=== PATIENT | female | born 2000 | race Two or more races ===

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

== ENCOUNTER 2021-03-21 08:00 | Outpatient (CLI) | payer OTHER, MEDICAID ==
[2021-03-21 12:10] LABS: BASOPHILS # (AUTO) 0.1 10^3/uL (0.0-0.1); BASOPHILS % (AUTO) 0.8 %; EOSINOPHILS # (AUTO) 0.3 10^3/uL (0.0-0.7); EOSINOPHILS % (AUTO) 3.1 %; HCT - HEMATOCRIT 46.9 % (37.0-47.0); HGB - HEMOGLOBIN 15.5 g/dL (12.0-16.0); LYMPHOCYTES # (AUTO) 3.8 10^3/uL (1.5-3.5); LYMPHOCYTES % (AUTO) 40.6 %; MEAN CORPUSCULAR HEMOGLOBIN 31.1 pg (27.0-31.0); MEAN CORPUSCULAR VOLUME 94.2 fL (81.0-99.0); MEAN PLATELET VOLUME 10.6 fL (7.9-10.8); MONOCYTES # (AUTO) 0.7 10^3/uL (0.0-1.0); MONOCYTES % (AUTO) 7.6 %; NEUTROPHILS # (AUTO) 4.4 10^3/uL (1.5-6.6); NEUTROPHILS % (AUTO) 47.6 %; PLT - PLATELET COUNT 390 10^3/uL (130-450); RED BLOOD COUNT 4.98 10^6/uL (4.20-5.40); RED CELL DISTRIBUTION WIDTH 11.9 % (12.0-15.0); WHITE BLOOD COUNT 9.3 x10^3/uL (4.8-10.8)
[2021-03-21 12:19] LABS: ESTIMATED AVERAGE GLUCOSE 154 mg/dL (70-100)
[2021-03-21 12:27] LABS: ALBUMIN 4.4 g/dL (3.2-5.5); ALBUMIN/GLOBULIN RATIO 1.5 (1.0-2.2); ALKALINE PHOSPHATASE 81 IU/L (42-121); ALT ALANINE AMINOTRANSFERASE 19 IU/L (10-60); AST ASPARTATE AMINOTRANSFERASE 13 IU/L (10-42); BILIRUBIN,TOTAL 0.6 mg/dL (0.2-1.0); BUN - BLOOD UREA NITROGEN 5 mg/dL (6-20); CALCIUM 9.5 mg/dL (8.5-10.3); CARBON DIOXIDE - CO2 26 mmol/L (21-32); CHLORIDE 105 mmol/L (101-111); CHOL/HDL RATIO 5.1 (<4.4); CHOLESTEROL 164 mg/dL; CREATININE 0.6 mg/dL (0.4-1.0); GFR - MDRD 129 (>89); GLUCOSE 99 mg/dL (70-100); HDL CHOLESTEROL 32 mg/dL; LDL CHOLESTEROL,CALCULATED 100 mg/dL; LDL/HDL RATIO 3.1 (<4.4); POTASSIUM 4.1 mmol/L (3.5-5.0); SODIUM 140 mmol/L (135-145); THYROID STIMULATING HORMONE 2.78 uIU/mL (0.34-5.60); TOTAL PROTEIN 7.4 g/dL (6.7-8.2); TRIGLYCERIDES 159 mg/dL; VLDL CHOLESTEROL 32 mg/dL
== END 2021-03-21 23:59 | disposition home or self-care (01) ==
LOC: LAB.WCP 08:00
PROVIDERS: ATTEND Physician Assistant Medical
DX: Z00.00 Encounter for general adult medical examination without abnormal findings (principal); R73.03 Prediabetes; E03.9 Hypothyroidism, unspecified
CPT/HCPCS: 36415; 80053; 80061; 83036; 83721; 84443; 85025

== ENCOUNTER 2021-09-12 08:00 | Outpatient (CLI) | payer OTHER, MEDICAID ==
[2021-09-12 18:56] LABS: BUN - BLOOD UREA NITROGEN 8 mg/dL (6-20); CALCIUM 9.3 mg/dL (8.5-10.3); CARBON DIOXIDE - CO2 25 mmol/L (21-32); CHLORIDE 104 mmol/L (101-111); CHOL/HDL RATIO 4.6 (<4.4); CHOLESTEROL 143 mg/dL; CREATININE 0.7 mg/dL (0.4-1.0); GFR - MDRD 107 (>89); GLUCOSE 138 mg/dL (70-100); HDL CHOLESTEROL 31 mg/dL; LDL CHOLESTEROL,CALCULATED 94 mg/dL; POTASSIUM 3.9 mmol/L (3.5-5.0); SODIUM 139 mmol/L (135-145); TRIGLYCERIDES 92 mg/dL; VLDL CHOLESTEROL 18 mg/dL
[2021-09-12 20:31] LABS: ESTIMATED AVERAGE GLUCOSE 146 mg/dL (70-100); HEMOGLOBIN A1c% 6.7 % (4.27-6.07)
== END 2021-09-12 23:59 | disposition home or self-care (01) ==
LOC: LAB.WCP 08:00
PROVIDERS: ATTEND Physician Assistant Medical
DX: E11.9 Type 2 diabetes mellitus without complications (principal)
CPT/HCPCS: 36415; 80048; 80061; 82043; 82570; 83036; 83721

== ENCOUNTER 2021-09-17 08:00 | Outpatient (CLI) | payer OTHER, MEDICAID ==
[2021-09-18 18:46] LABS: CREATININE,URINE 220.9 mg/dL; MICROALBUM/CREATININE RATIO,UR 20.4 ug/mg (<30.0); MICROALBUMIN,URINE 4.5 mg/dL (0-300.0)
== END 2021-09-17 23:59 | disposition home or self-care (01) ==
LOC: LAB.WCP 08:00
PROVIDERS: ATTEND Physician Assistant Medical
DX: E11.9 Type 2 diabetes mellitus without complications (principal)
CPT/HCPCS: 82043; 82570

== ENCOUNTER 2021-11-07 08:00 | Outpatient (CLI) | payer OTHER, MEDICAID | END 2021-11-07 23:59 | disposition home or self-care (01) | LOC: LAB.N 08:00 | PROVIDERS: ATTEND Family Medicine | DX: R53.81 Other malaise (principal); R53.83 Other fatigue; Z20.822 Contact with and (suspected) exposure to COVID-19 ==

== ENCOUNTER 2022-01-10 08:05 | Outpatient (CLI) | payer OTHER, MEDICAID ==
[2022-01-10 12:34] LABS: ESTIMATED AVERAGE GLUCOSE 148 mg/dL (70-100); HEMOGLOBIN A1c% 6.8 % (4.27-6.07)
[2022-01-10 12:38] LABS: ALBUMIN 4.5 g/dL (3.2-5.5); ALBUMIN/GLOBULIN RATIO 1.5 (1.0-2.2); ALKALINE PHOSPHATASE 91 IU/L (42-121); ALT ALANINE AMINOTRANSFERASE 20 IU/L (10-60); AST ASPARTATE AMINOTRANSFERASE 17 IU/L (10-42); BILIRUBIN,TOTAL 0.6 mg/dL (0.2-1.0); BUN - BLOOD UREA NITROGEN 9 mg/dL (6-20); CALCIUM 9.2 mg/dL (8.5-10.3); CARBON DIOXIDE - CO2 23 mmol/L (21-32); CHLORIDE 103 mmol/L (101-111); CHOL/HDL RATIO 4.3 (<4.4); CHOLESTEROL 126 mg/dL; CREATININE 0.8 mg/dL (0.4-1.0); GFR - MDRD 91 (>89); GLUCOSE 109 mg/dL (70-100); HDL CHOLESTEROL 29 mg/dL; LDL CHOLESTEROL,CALCULATED 83 mg/dL; LDL/HDL RATIO 2.9 (<4.4); POTASSIUM 3.9 mmol/L (3.5-5.0); SODIUM 137 mmol/L (135-145); TOTAL PROTEIN 7.6 g/dL (6.7-8.2); TRIGLYCERIDES 71 mg/dL; VLDL CHOLESTEROL 14 mg/dL
[2022-01-10 12:39] LABS: THYROID STIMULATING HORMONE 2.95 uIU/mL (0.34-5.60)
== END 2022-01-10 08:06 | disposition home or self-care (01) ==
LOC: LAB.N 08:05
PROVIDERS: ATTEND Physician Assistant Medical
DX: E11.9 Type 2 diabetes mellitus without complications (principal); E03.9 Hypothyroidism, unspecified
CPT/HCPCS: 36415; 80053; 80061; 83036; 83721; 84443

== ENCOUNTER 2022-04-21 13:05 | Outpatient (CLI) | payer OTHER, MEDICAID ==
[2022-04-21 18:23] LABS: ALBUMIN 4.6 g/dL (3.2-5.5); ALBUMIN/GLOBULIN RATIO 1.4 (1.0-2.2); BILIRUBIN,TOTAL 0.8 mg/dL (0.2-1.0); CALCIUM 9.6 mg/dL (8.5-10.3); CREATININE 0.8 mg/dL (0.4-1.0); POTASSIUM 3.9 mmol/L (3.5-5.0)
[2022-04-21 18:39] LABS: THYROID STIMULATING HORMONE 1.6 uIU/mL (0.34-5.60)
[2022-04-21 19:12] LABS: ESTIMATED AVERAGE GLUCOSE 131 mg/dL (70-100); HEMOGLOBIN A1c% 6.2 % (4.27-6.07)
== END 2022-04-21 13:06 | disposition home or self-care (01) ==
LOC: LAB.N 13:05
PROVIDERS: ATTEND Physician Assistant Medical
DX: I10 Essential (primary) hypertension (principal); E11.9 Type 2 diabetes mellitus without complications; E03.9 Hypothyroidism, unspecified
CPT/HCPCS: 36415; 80053; 83036; 84443

== ENCOUNTER 2022-10-15 09:14 | Outpatient (CLI) | payer MEDICARE, BC ==
[2022-10-15 12:23] LABS: BASOPHILS # (AUTO) 0.1 10^3/uL (0.0-0.1); BASOPHILS % (AUTO) 0.4 %; EOSINOPHILS # (AUTO) 0.2 10^3/uL (0.0-0.7); EOSINOPHILS % (AUTO) 1.6 %; HCT - HEMATOCRIT 46.7 % (37.0-47.0); HGB - HEMOGLOBIN 16.2 g/dL (12.0-16.0); LYMPHOCYTES # (AUTO) 4.6 10^3/uL (1.5-3.5); LYMPHOCYTES % (AUTO) 36.6 %; MEAN CORPUSCULAR HEMOGLOBIN 32.3 pg (27.0-31.0); MEAN CORPUSCULAR HGB CONC 34.7 g/dL (32.0-36.0); MEAN PLATELET VOLUME 10.6 fL (7.9-10.8); MONOCYTES # (AUTO) 0.8 10^3/uL (0.0-1.0); MONOCYTES % (AUTO) 6.6 %; NEUTROPHILS # (AUTO) 6.8 10^3/uL (1.5-6.6); NEUTROPHILS % (AUTO) 54.6 %; PLT - PLATELET COUNT 372 10^3/uL (130-450); RED BLOOD COUNT 5.02 10^6/uL (4.20-5.40); RED CELL DISTRIBUTION WIDTH 11.8 % (12.0-15.0); WHITE BLOOD COUNT 12.5 x10^3/uL (4.8-10.8)
[2022-10-15 13:18] LABS: ALBUMIN 4.5 g/dL (3.2-5.5); ALBUMIN/GLOBULIN RATIO 1.4 (1.0-2.2); ALKALINE PHOSPHATASE 96 IU/L (42-121); ALT ALANINE AMINOTRANSFERASE 20 IU/L (10-60); AST ASPARTATE AMINOTRANSFERASE 12 IU/L (10-42); BILIRUBIN,TOTAL 0.7 mg/dL (0.2-1.0); BUN - BLOOD UREA NITROGEN 8 mg/dL (6-20); CALCIUM 9.1 mg/dL (8.5-10.3); CARBON DIOXIDE - CO2 24 mmol/L (21-32); CHLORIDE 101 mmol/L (101-111); CHOL/HDL RATIO 5.2 (<4.4); CHOLESTEROL 172 mg/dL; CREATININE 0.6 mg/dL (0.4-1.0); GFR - MDRD 126 (>89); GLUCOSE 204 mg/dL (70-100); HDL CHOLESTEROL 33 mg/dL; LDL CHOLESTEROL,CALCULATED 116 mg/dL; LDL/HDL RATIO 3.5 (<4.4); POTASSIUM 3.9 mmol/L (3.5-5.0); SODIUM 135 mmol/L (135-145); TOTAL PROTEIN 7.8 g/dL (6.7-8.2); TRIGLYCERIDES 113 mg/dL; VLDL CHOLESTEROL 23 mg/dL
[2022-10-15 13:25] LABS: ESTIMATED AVERAGE GLUCOSE 171 mg/dL (70-100); HEMOGLOBIN A1c% 7.6 % (4.27-6.07)
[2022-10-15 13:26] LABS: THYROID STIMULATING HORMONE 2.77 uIU/mL (0.34-5.60)
== END 2022-10-15 09:15 | disposition home or self-care (01) ==
LOC: LAB.N 09:14
PROVIDERS: ATTEND Physician Assistant Medical
DX: Z00.00 Encounter for general adult medical examination without abnormal findings (principal); E11.9 Type 2 diabetes mellitus without complications
CPT/HCPCS: 36415; 80053; 80061; 82043; 82570; 83036; 83721; 84443; 85025

== ENCOUNTER 2023-01-13 10:35 | Outpatient (CLI) | payer MEDICARE, BC, MEDICAID ==
[2023-01-13 18:20] LABS: BASOPHILS # (AUTO) 0.1 10^3/uL (0.0-0.1); BASOPHILS % (AUTO) 0.5 %; EOSINOPHILS # (AUTO) 0.1 10^3/uL (0.0-0.7); EOSINOPHILS % (AUTO) 1.1 %; HCT - HEMATOCRIT 46.3 % (37.0-47.0); HGB - HEMOGLOBIN 15.8 g/dL (12.0-16.0); LYMPHOCYTES # (AUTO) 3.6 10^3/uL (1.5-3.5); LYMPHOCYTES % (AUTO) 31.5 %; MEAN CORPUSCULAR HEMOGLOBIN 32.7 pg (27.0-31.0); MEAN CORPUSCULAR HGB CONC 34.1 g/dL (32.0-36.0); MEAN CORPUSCULAR VOLUME 95.9 fL (81.0-99.0); MEAN PLATELET VOLUME 11.3 fL (7.9-10.8); MONOCYTES # (AUTO) 0.6 10^3/uL (0.0-1.0); MONOCYTES % (AUTO) 4.9 %; NEUTROPHILS # (AUTO) 7.1 10^3/uL (1.5-6.6); NEUTROPHILS % (AUTO) 61.8 %; PLT - PLATELET COUNT 361 10^3/uL (130-450); RED BLOOD COUNT 4.83 10^6/uL (4.20-5.40); RED CELL DISTRIBUTION WIDTH 11.9 % (12.0-15.0); WHITE BLOOD COUNT 11.4 x10^3/uL (4.8-10.8)
[2023-01-13 18:27] LABS: CALCIUM 9.3 mg/dL (8.5-10.3); CREATININE 0.7 mg/dL (0.4-1.0); POTASSIUM 4.5 mmol/L (3.5-5.0)
[2023-01-13 20:55] LABS: ESTIMATED AVERAGE GLUCOSE 154 mg/dL (70-100)
== END 2023-01-13 10:36 | disposition home or self-care (01) ==
LOC: LAB.N 10:35
PROVIDERS: ATTEND Physician Assistant Medical
DX: Z00.00 Encounter for general adult medical examination without abnormal findings (principal); E11.9 Type 2 diabetes mellitus without complications
CPT/HCPCS: 36415; 80048; 83036; 85025

== ENCOUNTER 2023-05-13 11:28 | Outpatient (CLI) | payer MEDICARE, BC, MEDICAID ==
[2023-05-13 18:11] LABS: ALBUMIN 4.6 g/dL (3.2-5.5); ALBUMIN/GLOBULIN RATIO 1.5 (1.0-2.2); ALKALINE PHOSPHATASE 82 IU/L (42-121); ALT ALANINE AMINOTRANSFERASE 16 IU/L (10-60); AST ASPARTATE AMINOTRANSFERASE 13 IU/L (10-42); BILIRUBIN,TOTAL 0.7 mg/dL (0.2-1.0); BUN - BLOOD UREA NITROGEN 5 mg/dL (6-20); CALCIUM 9.5 mg/dL (8.5-10.3); CARBON DIOXIDE - CO2 25 mmol/L (21-32); CHLORIDE 107 mmol/L (101-111); CHOLESTEROL 123 mg/dL; CREATININE 0.7 mg/dL (0.6-1.3); GFR - MDRD 106 (>89); GLUCOSE 137 mg/dL (74-104); HDL CHOLESTEROL 31 mg/dL; LDL CHOLESTEROL,CALCULATED 74 mg/dL; LDL/HDL RATIO 2.4 (<4.4); SODIUM 136 mmol/L (135-145); TOTAL PROTEIN 7.6 g/dL (6.4-8.9); TRIGLYCERIDES 92 mg/dL (48-352); VLDL CHOLESTEROL 18 mg/dL
[2023-05-13 20:27] LABS: ESTIMATED AVERAGE GLUCOSE 140 mg/dL (70-100); HEMOGLOBIN A1c% 6.5 % (4.27-6.07)
== END 2023-05-13 11:29 | disposition home or self-care (01) ==
LOC: LAB.N 11:28
PROVIDERS: ATTEND Physician Assistant Medical
DX: E11.9 Type 2 diabetes mellitus without complications (principal)
CPT/HCPCS: 36415; 80053; 80061; 83036; 83721

== ENCOUNTER 2023-06-02 01:10 | Outpatient (CLI) | payer MEDICARE, BC | END 2023-06-02 23:59 | disposition critical access hospital (66) | LOC: EMS 01:10 | DX: R00.0 Tachycardia, unspecified (principal); I10 Essential (primary) hypertension; R73.9 Hyperglycemia, unspecified | CPT/HCPCS: A0425; A0427 ==

== ENCOUNTER 2023-06-02 01:31 | Emergency (ER) | payer MEDICARE, BC ==
--- NOTE | 2023-06-02 02:36 | ED Physician Documentation ---
History of Present Illness - Stated complaint Stated Complaint: HEART PALP - Chief complaint Chief Complaint: Cardiac - History obtained from History obtained from: Patient - Additonal information Additional information: HPI from patient. Patient woke from sleep at approximately midnight with rapid palpitations. Denies chest pain, dyspnea. Denies h/o similar symptoms. Has no other symptoms except sensation of rapid palpitations. Denies leg swelling. No recent long car trips nor plane trips. Review of Systems Cardiac: reports: Palpitations. denies: Chest pain / pressure, Pedal edema, Calf pain Respiratory: reports: Reviewed and negative GI: reports: Reviewed and negative PD PAST MEDICAL HISTORY - Past Medical History Cardiovascular: None Respiratory: None Endocrine/Autoimmune: HyPOthyroidism, Type 2 diabetes, Other GI: None : None HEENT: None Psych: Depression, Anxiety, ADD/ADHD Musculoskeletal: None - Past Surgical History Past Surgical History: Yes HEENT: Tonsil/Adenoidectomy - Present Medications Home Medications: Ambulatory Orders Medication Instructions Recorded Confirmed Sertraline HCl [Zoloft] 100 mg PO DAILY 12/13/13 06/04/21 Ascorbate Calcium/Bioflavonoid 1 tab PO DAILY 08/16/14 06/04/21 [Hanny-C 500 mg Tablet] Guanfacine HCl [Intuniv] 0.5 - 1 mg PO BID 06/04/21 06/04/21 Methylphenidate [Ritalin] 54 mg PO DAILY 06/04/21 06/04/21 Primal Force 2 tab PO DAILY 06/04/21 metFORMIN [Glucophage] 500 mg PO BIDWM 06/04/21 06/04/21 Metoprolol Tartrate [Lopressor] 25 mg PO BID PRN #20 tablet 06/02/23 - Allergies Allergies/Adverse Reactions: Allergies Allergy/AdvReac Type Severity Reaction Status Date / Time No Known Drug Allergies Allergy Verified 06/02/23 01:42 - Social History Does the pt smoke?: No Smoking Status: Never smoker Does the pt drink ETOH?: No Does the pt have substance abuse?: No - Immunizations Immunizations are current?: Yes - POLST Patient has POLST: No PD ED PE NORMAL - Vitals Vital signs reviewed: Yes - General General: Alert and oriented X 3, No acute distress, Well developed/nourished - Cardiac Cardiac: No murmur - Respiratory Respiratory: No respiratory distress, Clear bilaterally - Extremities Extremities: No edema PD ED PE EXPANDED - Cardiac Cardiac: Tachy, Regular Rhythm Results - Vitals Vitals: Oxygen O2 Source Room air - EKG (time done) No standard instances EKG releavant findings:: EKG personally interpreted by author of this note. Relevant findings are: Rate: Rate (enter#) (102), Tachy Rhythm: Sinus tachycardia [place]: Normal, Other (borderline RAD) Intervals: Normal NM QRS: Normal Ischemia: Normal ST segments Other comments: Other comments (S1Q3T3 pattern) - Labs Labs: Laboratory Tests 06/02/23 06/02/23 06/02/23 03:23 03:23 03:23 WBC 13.4 H RBC 4.88 Hgb 15.7 Hct 44.5 MCV 91.2 MCH 32.2 H MCHC 35.3 RDW 11.5 L Plt Count 395 MPV 10.0 Neut # (Auto) 10.2 H Lymph # (Auto) 2.4 [place] # (Auto) 0.7 Eos # (Auto) 0.1 Baso # (Auto) 0.0 Absolute Nucleated RBC 0.00 Nucleated RBC % 0.0 D-Dimer < 200.0 L Sodium 135 Potassium 4.3 Chloride 102 Carbon Dioxide 24 Anion Gap 9.0 BUN 8 Creatinine 0.7 Estimated GFR (MDRD) 105 Glucose 302 H Calcium 10.1 Total Bilirubin 0.4 AST 12 ALT 17 Alkaline Phosphatase 103 Total Protein 7.8 Albumin 4.9 Globulin 2.9 Albumin/Globulin Ratio 1.7 Lipase 11 TSH Urine HCG, Qual Urine Opiates Screen Ur Oxycodone Screen Urine Methadone Screen Ur Propoxyphene Screen Ur Barbiturates Screen Ur Tricyclics Screen Ur Phencyclidine Scrn Ur Amphetamine Screen U Methamphetamines Scrn U Benzodiazepines Scrn Urine Cocaine Screen U Cannabinoids Screen 06/02/23 06/02/23 06/02/23 03:23 06:11 06:11 WBC RBC Hgb Hct MCV MCH MCHC RDW Plt Count MPV Neut # (Auto) Lymph # (Auto) [place] # (Auto) Eos # (Auto) Baso # (Auto) Absolute Nucleated RBC Nucleated RBC % D-Dimer Sodium Potassium Chloride Carbon Dioxide Anion Gap BUN Creatinine Estimated GFR (MDRD) Glucose Calcium Total Bilirubin AST ALT Alkaline Phosphatase Total Protein Albumin Globulin Albumin/Globulin Ratio Lipase TSH 3.73 Urine HCG, Qual NEGATIVE Urine Opiates Screen NEGATIVE Ur Oxycodone Screen NEGATIVE Urine Methadone Screen NEGATIVE Ur Propoxyphene Screen NEGATIVE Ur Barbiturates Screen NEGATIVE Ur Tricyclics Screen NEGATIVE Ur Phencyclidine Scrn NEGATIVE Ur Amphetamine Screen NEGATIVE U Methamphetamines Scrn NEGATIVE U Benzodiazepines Scrn NEGATIVE Urine Cocaine Screen NEGATIVE U Cannabinoids Screen NEGATIVE - Rads (name of study) CTA chest Relevant Findings:: Prelim report reviewed, See rad report PD Medical Decision Making - ED course Complexity details: reviewed results, re-evaluated patient, considered differential, d/w patient ED course: Presents with ST, persistently 120s-130s for early part of her ED stay. ST on EKG and on playground monitor (EKG reflects a brief but transient decrease in heart rate to 102). She had increases in her ST to as high as 160s, and on two occasions this was noted while ED RN was in room who saw that patient was asleep when she had these higher spikes in her heart rate. She does not appear anxious and HPI/ROS does not give reason to suspect dehydration, but either of these could be causative or contributory (anxiety, dehydration), and thus 1 liter IV NS given as well as 1mg IV lorazepam. Neither of these had any noticeable effect on the heart rate. Unremarkable CBC (mild leukocytosis, WBC 13.4), ER abdominal panel except blood glucose 300. Patient says she has not had her metformin for at least one week due to problems with insurance coverage of the medication. TSH normal (3.73). D-dimer also normal (<200). Despite the d-dimer, a CTA chest is then undertaken, as patient continued to exhibit significant ST on monitor (mostly averaging 120s) despite fluids, lorazepam, and with no abnormal tests thus far to explain the tachycardia. The CTA chest is unremarkable, as well. She has been having mildly elevated BP during ED stay and thus she is given 5mg IV lopressor; this had a significant effect on the heart rate, rapidly improving the rate to 90s-100s. She did not have any significant, sustained tachycardia after the lopressor was given. Results d/w patient. Etiology of her ST remains unclear but given that a single dose of 5mg IV lopressor has essentially resolved the tachycardia, further ED testing/treatment not indicated at this time. I am prescribing 25mg metoprolol to be taken up to twice per day on a PRN basis (for tachycardia with sensation of rapid palpitations). I instructed patient to seek follow up with PMD for reevaluation; further testing might be indicated such as Holter or zio monitoring Departure - Departure Disposition: 01 Home, Self Care Clinical Impression: Sinus tachycardia Condition: Good Instructions: Tachycardia Prescriptions: Metoprolol Tartrate [Lopressor] 25 mg PO BID PRN #20 tablet PRN Reason: Tachycardia Comments: There were no concerning or diagnostic findings on tonight's tests, including the blood tests and the CT scan of your chest. Your blood sugar is high (302) but this is not high enough to cause any symptoms nor immediate concern. Resume your metformin after 2 days (as was discussed, you need to not take metformin for 2 days after having a CT scan involving contrast). Your heart rate was quite elevated for most of your ER stay, but this markedly improved when you were given a dose of metoprolol through your IV. Metoprolol is a medication that is usually used for high blood pressure, but it also lowers the heart rate. I have electronically submitted a prescription for the oral form of metoprolol to the [facility] in [place]. You can take a dose of the metoprolol up to twice a day but only as needed for fast heart rate. As we discussed, prior to taking a dose of the Lopressor, it is important that you take your blood pressure, and to not take the Lopressor if your systolic blood pressure (top number) is below 100. If the metoprolol does not result in improvement in rapid heart rate within 45-60 minutes, consider returning to the ER . Follow-up with your primary care provider for reevaluation. Further testing might be needed, even if your symptoms do not recur. Forms: PCP List Discharge Date/Time: 06/02/23 08:45
[2023-06-02] MEDS ORDERED: LORazepam 0.5 MG TABLET PO STA (03:00)
[2023-06-02] MEDS ORDERED: SODIUM CHLORIDE 0.9% 1,000 ML IV STA (03:01)
[2023-06-02 03:29] LABS: BASOPHILS % (AUTO) 0.2 %; EOSINOPHILS # (AUTO) 0.1 10^3/uL (0.0-0.7); EOSINOPHILS % (AUTO) 0.5 %; HCT - HEMATOCRIT 44.5 % (37.0-47.0); HGB - HEMOGLOBIN 15.7 g/dL (12.0-16.0); LYMPHOCYTES # (AUTO) 2.4 10^3/uL (1.5-3.5); LYMPHOCYTES % (AUTO) 18.1 %; MEAN CORPUSCULAR HEMOGLOBIN 32.2 pg (27.0-31.0); MEAN CORPUSCULAR HGB CONC 35.3 g/dL (32.0-36.0); MEAN CORPUSCULAR VOLUME 91.2 fL (81.0-99.0); MONOCYTES # (AUTO) 0.7 10^3/uL (0.0-1.0); MONOCYTES % (AUTO) 5.1 %; NEUTROPHILS # (AUTO) 10.2 10^3/uL (1.5-6.6); NEUTROPHILS % (AUTO) 75.9 %; PLT - PLATELET COUNT 395 10^3/uL (130-450); RED BLOOD COUNT 4.88 10^6/uL (4.20-5.40); RED CELL DISTRIBUTION WIDTH 11.5 % (12.0-15.0); WHITE BLOOD COUNT 13.4 x10^3/uL (4.8-10.8)
[2023-06-02 03:49] LABS: ALBUMIN 4.9 g/dL (3.2-5.5); ALBUMIN/GLOBULIN RATIO 1.7 (1.0-2.2); BILIRUBIN,TOTAL 0.4 mg/dL (0.2-1.0); CALCIUM 10.1 mg/dL (8.5-10.3); CREATININE 0.7 mg/dL (0.6-1.3); POTASSIUM 4.3 mmol/L (3.5-4.5); TOTAL PROTEIN 7.8 g/dL (6.4-8.9)
[2023-06-02] MEDS ORDERED: METOPROLOL 5 MG/5 ML VIAL IVP STA (04:54)
[2023-06-02 05:33] VITALS: O2SAT 97
[2023-06-02 06:28] LABS: HCG UR QUAL NEGATIVE
[2023-06-02 07:15] LABS: MUDS CUTOFF CONCENTRATIONS CUTOFF CONC BELOW:
[2023-06-02] MEDS ORDERED: iohexoL-300 100 ML VIAL IVP ONE (07:17)
[2023-06-02 07:31] LABS: AMPHETAMINE SCREEN,URINE NEGATIVE (NEGATIVE); BARBITURATE SCREEN,UR NEGATIVE (NEGATIVE); BENZODIAZEPINES SCREEN, URINE NEGATIVE (NEGATIVE); COCAINE SCREEN URINE NEGATIVE (NEGATIVE); METHADONE SCREEN, URINE NEGATIVE (NEGATIVE); METHAMPHETAMINES SCREEN, URINE NEGATIVE (NEGATIVE); OPIATE SCREEN, URINE NEGATIVE (NEGATIVE); OXYCODONE SCREEN, URINE NEGATIVE (NEGATIVE); PROPOXYPHENE SCREEN, URINE NEGATIVE (NEGATIVE); THC CANNABINOID SCREEN, URINE NEGATIVE (NEGATIVE); TRICYCLIC ANTIDEPRESSANT,URINE NEGATIVE (NEGATIVE)
[2023-06-02 08:22] VITALS: BP 152/100
--- NOTE | 2023-06-02 08:44 | CT Report ---
PROCEDURE: ANGIO CHEST W/WO INDICATIONS: unexplained and significant sinus tachycardia CONTRAST: 80ml Omni 300 TECHNIQUE: After the administration of intravenous contrast, 2 mm axial images were acquired from the pulmonary apices to the posterior costophrenic angles during the arterial phase. In addition, 1 mm lung kernel and 5 mm soft tissue kernel reconstructions were performed. 3-dimensional coronal oblique maximum int ensity projection (MIP) reformats, 8 mm axial MIP, and 5 mm coronal and sagittal MPR reformats were t hen performed through the thorax. For radiation dose reduction, the following was used: automated exp osure control, adjustment of mA and/or kV according to patient size. COMPARISON: None FINDINGS: Image quality: Excellent. Large vessels: No filling defects within the opacified pulmonary arteries, accounting for motion and contrast timing. No evidence of acute aortic syndrome or aortic aneurysm. Lungs and pleura: No consolidation. No pleural effusions. No pneumothorax. No suspicious pulmonary n odules which require follow up. Mediastinum: Heart size is normal. No pericardial effusion. No large vessel abnormality. No mediastin al adenopathy by size criteria. Chest wall and lower neck: Thyroid is unremarkable. No axillary or supraclavicular adenopathy by size . Bones: No aggressive osseous abnormality. Upper Abdomen: Unremarkable. IMPRESSION: No pulmonary embolus. Findings are concordant with preliminary interpretation provided by [facility]. Reviewed by: Adelso Muhammad on 06/02/2023 8:43 AM PDT Approved by: Adelso Muhammad on 06/02/2023 8:43 AM PDT Station ID: [id number]
== END 2023-06-02 08:45 | disposition home or self-care (01) ==
LOC: EDUNIT# → ED 01:31
DX: R00.0 Tachycardia, unspecified (principal); E11.9 Type 2 diabetes mellitus without complications; E03.9 Hypothyroidism, unspecified; Z79.899 Other long term (current) drug therapy; Z79.84 Long term (current) use of oral hypoglycemic drugs
CPT/HCPCS: 36415; 71275; 80053; 80306; 81025; 83690; 84443; 85025; 85379; 93005; 96374; 99284; A9270; Q9967

== ENCOUNTER 2023-06-15 17:32 | Outpatient (CLI) | payer MEDICARE, BC | END 2023-06-15 17:33 | disposition critical access hospital (66) | LOC: EMS 17:32 | DX: R07.9 Chest pain, unspecified (principal); R00.0 Tachycardia, unspecified; R50.9 Fever, unspecified | CPT/HCPCS: A0425; A0429 ==

== ENCOUNTER 2023-06-15 17:54 | Emergency (ER) | payer MEDICARE, BC ==
--- NOTE | 2023-06-15 18:50 | ED Physician Documentation ---
History of Present Illness - Stated complaint Stated Complaint: HIGH HEART RATE - Chief complaint Chief Complaint: Cardiac - History obtained from History obtained from: Patient, EMS - History of Present Illness Timing: Today Pain level max: 3 Pain level now: 0 - Additonal information Additional information: Patient is a 23-year-old female who presents to the emergency department stating that she had palpitations at home today. She states that her heart felt like it was racing. She states that she had sharp chest pain as well. She has been seen here recently for same. No acute findings were found on laboratory testing. She had a CT scan of the chest for PE, there was no pulmonary embolism found.She was written a prescription of metoprolol, but has not used that. She states currently she is asymptomatic. No shortness of breath. No cough. No congestion. No family history of blood clots or aortic dissection. She states that her mother does have palpitations. The chest pain was sharp, in the middle of her chest and non-radiating. Nothing seem to make it better or worse. No change with walking, breathing, eating or drinking. No nausea or vomiting. No sweating. No numbness or tingling. Review of Systems Constitutional: denies: Fever, Chills Nose: denies: Rhinorrhea / runny nose, Congestion Throat: denies: Sore throat Respiratory: denies: Cough, Hemoptysis, Wheezing GI: denies: Nausea, Vomiting, Diarrhea : denies: Dysuria, Frequency, Hesitancy, Now EGA Skin: denies: Rash PD PAST MEDICAL HISTORY - Past Medical History Cardiovascular: None Respiratory: None Endocrine/Autoimmune: HyPOthyroidism, Type 2 diabetes, Other GI: None : None HEENT: None Psych: Depression, Anxiety, ADD/ADHD Musculoskeletal: None - Past Surgical History Past Surgical History: Yes HEENT: Tonsil/Adenoidectomy - Present Medications Home Medications: Ambulatory Orders Medication Instructions Recorded Confirmed Sertraline HCl [Zoloft] 100 mg PO DAILY 12/13/13 06/04/21 Ascorbate Calcium/Bioflavonoid 1 tab PO DAILY 08/16/14 06/04/21 [Hanny-C 500 mg Tablet] Guanfacine HCl [Intuniv] 0.5 - 1 mg PO BID 06/04/21 06/04/21 Methylphenidate [Ritalin] 54 mg PO DAILY 06/04/21 06/04/21 Primal Force 2 tab PO DAILY 06/04/21 metFORMIN [Glucophage] 500 mg PO BIDWM 06/04/21 06/04/21 Metoprolol Tartrate [Lopressor] 25 mg PO BID PRN #20 tablet 06/02/23 - Allergies Allergies/Adverse Reactions: Allergies Allergy/AdvReac Type Severity Reaction Status Date / Time No Known Drug Allergies Allergy Verified 06/15/23 18:03 - Social History Does the pt smoke?: No Smoking Status: Never smoker Does the pt drink ETOH?: No Does the pt have substance abuse?: No - Immunizations Immunizations are current?: Yes - POLST Patient has POLST: No PD ED PE NORMAL - Vitals Vital signs reviewed: Yes - General General: Alert and oriented X 3, No acute distress - HEENT HEENT: PERRL, Moist mucous membranes - Neck Neck: Supple, no meningeal sign - Cardiac Cardiac: RRR, No murmur, Strong equal pulses - Respiratory Respiratory: No respiratory distress, Clear bilaterally - Abdomen Abdomen: Soft, Non tender, Non distended - Derm Derm: Warm and dry - Extremities Extremities: No edema, No calf tenderness / cord - Neuro Neuro: Alert and oriented X 3 - Psych Psych: Normal mood, Normal affect Results - Vitals Vitals: Vital Signs - 24 hr 06/15/23 06/15/23 06/15/23 18:00 19:03 19:46 Temperature 36.7 C Heart Rate 89 85 78 Respiratory 21 15 15 Rate Blood Pressure 167/82 H 144/76 H 138/72 H O2 Saturation 98 97 97 Oxygen O2 Source Room air - EKG (time done) 1808 EKG releavant findings:: EKG personally interpreted by author of this note. Relevant findings are: Rate: Rate (enter#) (84) Rhythm: NSR [place]: Normal Intervals: Normal ID QRS: Normal Ischemia: Normal ST segments - Labs Labs: Laboratory Tests 06/15/23 06/15/23 18:55 18:55 WBC 13.5 H RBC 4.69 Hgb 15.2 Hct 43.5 MCV 92.8 MCH 32.4 H MCHC 34.9 RDW 11.5 L Plt Count 354 MPV 10.3 Neut # (Auto) 9.5 H Lymph # (Auto) 3.1 [place] # (Auto) 0.8 Eos # (Auto) 0.1 Baso # (Auto) 0.0 Absolute Nucleated RBC 0.00 Nucleated RBC % 0.0 Sodium 137 Potassium 3.9 Chloride 105 Carbon Dioxide 25 Anion Gap 7.0 BUN 10 Creatinine 0.6 Estimated GFR (MDRD) 125 Glucose 124 H Calcium 10.0 Total Bilirubin 0.3 AST 15 ALT 27 Alkaline Phosphatase 73 Troponin I High Sens < 2.3 L Total Protein 7.3 Albumin 4.8 Globulin 2.5 Albumin/Globulin Ratio 1.9 Lipase 13 - Rads (name of study) cxr Relevant Findings:: Final report received PD Medical Decision Making - ED course Complexity details: reviewed old records, reviewed results, re-evaluated patient, considered differential, d/w patient ED course: Patient with palpitations prior to arrival in the emergency apartment. Her heart rate is normal in the emergency department and is in a sinus rhythm. No significant laboratory abnormalities. Normal chest x-ray. She was given a dose of metoprolol here. And she does feel better.No evidence of aortic dissection, pulmonary embolus, or other emergent condition at this time. No arrhythmia on telemetry. We will have her continue the medication's as previously prescribed, recommend, she use the metoprolol at home and follow up with her primary care provider for a heart monitor and further testing. Patient counseled regarding signs and symptoms for which I believe and urgent re-evaluation would be necessary. Patient with good understanding of and agreement to plan and is comfortable going home at this time. This document was made in part using voice recognition software. While efforts are made to proofread this document, sound alike and grammatical errors may occur. Departure - Departure Disposition: 01 Home, Self Care Clinical Impression: Palpitations, Atypical chest pain, Sinus tachycardia Condition: Good Instructions: ED Chest Pain Atypical Unkn Cause, ED Palpitations Follow-Up: Allison Newton PA-C [Primary Care Provider] - Comments: Your x-ray, EKG and bloodwork do not show any acute abnormalities today. Please follow-up with your doctor for further care. Please use the metoprolol as previously instructed for palpitations. Please return if you worsen. Forms: PCP List Discharge Date/Time: 06/15/23 19:46
[2023-06-15] MEDS ORDERED: METOPROLOL TARTRATE 50 MG TABLET PO STA (18:51)
[2023-06-15 19:00] LABS: BASOPHILS % (AUTO) 0.3 %; EOSINOPHILS # (AUTO) 0.1 10^3/uL (0.0-0.7); EOSINOPHILS % (AUTO) 0.7 %; HCT - HEMATOCRIT 43.5 % (37.0-47.0); HGB - HEMOGLOBIN 15.2 g/dL (12.0-16.0); LYMPHOCYTES # (AUTO) 3.1 10^3/uL (1.5-3.5); LYMPHOCYTES % (AUTO) 22.8 %; MEAN CORPUSCULAR HEMOGLOBIN 32.4 pg (27.0-31.0); MEAN CORPUSCULAR HGB CONC 34.9 g/dL (32.0-36.0); MEAN CORPUSCULAR VOLUME 92.8 fL (81.0-99.0); MEAN PLATELET VOLUME 10.3 fL (7.9-10.8); MONOCYTES # (AUTO) 0.8 10^3/uL (0.0-1.0); MONOCYTES % (AUTO) 5.9 %; NEUTROPHILS # (AUTO) 9.5 10^3/uL (1.5-6.6); NEUTROPHILS % (AUTO) 70.1 %; PLT - PLATELET COUNT 354 10^3/uL (130-450); RED BLOOD COUNT 4.69 10^6/uL (4.20-5.40); RED CELL DISTRIBUTION WIDTH 11.5 % (12.0-15.0); WHITE BLOOD COUNT 13.5 x10^3/uL (4.8-10.8)
[2023-06-15 19:12] VITALS: O2SAT 97
[2023-06-15 19:19] LABS: ALBUMIN 4.8 g/dL (3.2-5.5); ALBUMIN/GLOBULIN RATIO 1.9 (1.0-2.2); ALKALINE PHOSPHATASE 73 IU/L (42-121); ALT ALANINE AMINOTRANSFERASE 27 IU/L (10-60); AST ASPARTATE AMINOTRANSFERASE 15 IU/L (10-42); BILIRUBIN,TOTAL 0.3 mg/dL (0.2-1.0); BUN - BLOOD UREA NITROGEN 10 mg/dL (6-20); CARBON DIOXIDE - CO2 25 mmol/L (21-32); CHLORIDE 105 mmol/L (101-111); CREATININE 0.6 mg/dL (0.6-1.3); GFR - MDRD 125 (>89); GLUCOSE 124 mg/dL (74-104); LIPASE 13 U/L (11-82); POTASSIUM 3.9 mmol/L (3.5-4.5); SODIUM 137 mmol/L (135-145); TOTAL PROTEIN 7.3 g/dL (6.4-8.9)
[2023-06-15 19:21] LABS: TROPONIN I HIGH SENSITIVITY < 2.3 ng/L (2.3-14.8)
[2023-06-15 19:55] VITALS: BP 138/72
--- NOTE | 2023-06-15 19:58 | XRAY Report ---
PROCEDURE: Chest 1 View X-Ray INDICATIONS: Chest Pain TECHNIQUE: One view of the chest was acquired. COMPARISON: Chest CT angiogram, 06/02/2023. FINDINGS: Surgical changes and devices: None. Lungs and pleura: No pleural effusions or pneumothorax. Lungs are clear. Mediastinum: Mediastinal contours appear normal. Heart size is normal. Bones and chest wall: No suspicious bony lesions. Overlying soft tissues appear unremarkable. IMPRESSION: No acute cardiopulmonary process. Reviewed by: Eliud Seth MD on 06/15/2023 7:56 PM PDT Approved by: Eliud Seth MD on 06/15/2023 7:56 PM PDT Station ID: [id number]
== END 2023-06-15 19:46 | disposition home or self-care (01) ==
LOC: ED 17:54
DX: R00.0 Tachycardia, unspecified (principal); R00.2 Palpitations; R07.89 Other chest pain; E11.9 Type 2 diabetes mellitus without complications; Z79.84 Long term (current) use of oral hypoglycemic drugs
CPT/HCPCS: 36415; 71045; 80053; 83690; 84484; 85025; 93005; 99284; A9270

== ENCOUNTER 2023-06-20 14:15 | Outpatient (CLI) | payer MEDICARE, BC | END 2023-06-20 23:59 | disposition EMS.NT | LOC: EMS 14:15 | DX: R07.89 Other chest pain (principal); R00.0 Tachycardia, unspecified ==

== ENCOUNTER 2023-06-30 02:00 | Emergency (ER) | payer MEDICARE, BC ==
[2023-06-30 03:10] VITALS: O2SAT 100
--- NOTE | 2023-06-30 03:11 | ED Physician Documentation ---
PD HPI CHEST PAIN - Stated complaint Stated Complaint: CHEST PX - Chief complaint Chief Complaint: Cardiac - History obtained from History obtained from: Patient - History of Present Illness Timing - onset: Today Timing - onset during: Rest, Light activity Timing - duration: Hours Timing - details: Abrupt onset, Intermittant, Waxing and waning Quality: Sharp, Pain Location: Left chest Radiation: Left upper extremity Improved by: Rest Worsened by: Exertion Associated symptoms: Shortness of air, Feeling faint / dizzy. No: Diaphoresis, Nausea, Vomiting Similar symptoms before: Work up / diagnostics (including CTA of chest EKG and blood work) Recently seen: Emergency Dept - Additional information Additional information: 23-year-old Charlene Velasquez has a history of type 2 diabetes and she is on metformin. Today she comes into the emergency department complaining of palpitations in her chest and a rapid heart rate. She is taken some metoprolol to counter this. Currently she is not symptomatic. She indicates that over the past week she has had episodic chest pain and pain with exertion in her chest. She denies a cough or current shortness of breath.She does state that she gets up 2-3 times per night to urinate and she feels that she usually has had hydrating adequately during the day. Today she indicates that she had 2 sodas and no water. Review of Systems Constitutional: denies: Fever, Chills, Myalgias Eyes: denies: Decreased vision Ears: denies: Ear pain Nose: denies: Rhinorrhea / runny nose, Congestion Throat: denies: Sore throat Cardiac: reports: Chest pain / pressure, Palpitations. denies: Pedal edema, Calf pain Respiratory: denies: Dyspnea, Cough GI: denies: Abdominal Pain, Nausea, Vomiting, Constipation, Diarrhea : reports: Frequency. denies: Dysuria PD PAST MEDICAL HISTORY - Past Medical History Cardiovascular: None Respiratory: None Endocrine/Autoimmune: HyPOthyroidism, Type 2 diabetes, Other GI: None : None HEENT: None Psych: Depression, Anxiety, ADD/ADHD Musculoskeletal: None - Past Surgical History Past Surgical History: Yes HEENT: Tonsil/Adenoidectomy - Present Medications Home Medications: Ambulatory Orders Medication Instructions Recorded Confirmed Sertraline HCl [Zoloft] 100 mg PO DAILY 12/13/13 06/04/21 Ascorbate Calcium/Bioflavonoid 1 tab PO DAILY 08/16/14 06/04/21 [Hanny-C 500 mg Tablet] Guanfacine HCl [Intuniv] 0.5 - 1 mg PO BID 06/04/21 06/04/21 Methylphenidate [Ritalin] 54 mg PO DAILY 06/04/21 06/04/21 Primal Force 2 tab PO DAILY 06/04/21 metFORMIN [Glucophage] 500 mg PO BIDWM 06/04/21 06/04/21 Metoprolol Tartrate [Lopressor] 25 mg PO BID PRN #20 tablet 06/02/23 - Allergies Allergies/Adverse Reactions: Allergies Allergy/AdvReac Type Severity Reaction Status Date / Time aspirin AdvReac Dizziness Verified 06/30/23 02:10 - Social History Does the pt smoke?: No Smoking Status: Never smoker Does the pt drink ETOH?: No Does the pt have substance abuse?: No - Immunizations Immunizations are current?: Yes - POLST Patient has POLST: No PD ED PE NORMAL - Vitals Vital signs reviewed: Yes (Hypertensive and tachycardic) - General General: Alert and oriented X 3, No acute distress, Well developed/nourished - HEENT HEENT: Atraumatic, PERRL, EOMI, Other (Dry mucous membranes) - Neck Neck: Supple, no meningeal sign, No bony TTP - Cardiac Cardiac: RRR, No murmur, Other - Respiratory Respiratory: No respiratory distress, Clear bilaterally - Abdomen Abdomen: Normal bowel sounds, Soft, Non tender, Non distended - Back Back: No CVA TTP, No spinal TTP - Derm Derm: Normal color, Warm and dry, Other ( melasma is present) - Extremities Extremities: No deformity, No edema - Neuro Neuro: Alert and oriented X 3, chinese herbalist 2-12 intact, No motor deficit, No sensory deficit, Normal speech Eye Opening: Spontaneous Motor: Obeys Commands Verbal: Oriented GCS Score: 15 - Psych Psych: Normal mood, Normal affect Results - Vitals Vitals: Vital Signs - 24 hr 06/30/23 06/30/23 06/30/23 02:05 03:04 03:39 Temperature 36.8 C 37 C 37 C Heart Rate 102 H 88 78 Respiratory 18 20 20 Rate Blood Pressure 140/83 H 131/75 H 133/90 H O2 Saturation 99 100 100 06/30/23 06:17 Temperature 36.4 C L Heart Rate 71 Respiratory 20 Rate Blood Pressure 128/71 O2 Saturation 100 Oxygen O2 Source Room air - EKG (time done) 0212 EKG releavant findings:: EKG personally interpreted by author of this note. Relevant findings are: Rate: Rate (enter#) (102) Rhythm: Sinus tachycardia Ischemia: Normal ST segments Compare to prior EKG: Changed from prior EKG (SPT 06-15-23 rate is faster) Computer interpretation: Agree with computer - Labs Labs: Laboratory Tests 06/30/23 06/30/23 06/30/23 03:20 03:20 03:20 WBC 12.2 H RBC 4.60 Hgb 15.1 Hct 42.7 MCV 92.8 MCH 32.8 H MCHC 35.4 RDW 11.6 L Plt Count 351 MPV 10.0 Neut # (Auto) 9.0 H Lymph # (Auto) 2.4 Bulloch # (Auto) 0.7 Eos # (Auto) 0.1 Baso # (Auto) 0.0 Absolute Nucleated RBC 0.00 Nucleated RBC % 0.0 Sodium 136 Potassium 4.0 Chloride 104 Carbon Dioxide 24 Anion Gap 8.0 BUN 7 Creatinine 0.5 L Estimated GFR (MDRD) 154 Glucose 232 H POC Whole Bld Glucose Calcium 10.0 Total Bilirubin 0.3 AST 10 ALT 23 Alkaline Phosphatase 82 Troponin I High Sens < 2.3 L Total Protein 7.5 Albumin 4.7 Globulin 2.8 Albumin/Globulin Ratio 1.7 Lipase 12 Urine Color Urine Clarity Urine pH Ur Specific Wing Urine Protein Urine Glucose (UA) Urine Ketones Urine Occult Blood Urine Nitrite Urine Bilirubin Urine Urobilinogen Ur Leukocyte Esterase Ur Microscopic Review Urine Culture Comments 06/30/23 06/30/23 04:45 05:58 WBC RBC Hgb Hct MCV MCH MCHC RDW Plt Count MPV Neut # (Auto) Lymph # (Auto) Bulloch # (Auto) Eos # (Auto) Baso # (Auto) Absolute Nucleated RBC Nucleated RBC % Sodium Potassium Chloride Carbon Dioxide Anion Gap BUN Creatinine Estimated GFR (MDRD) Glucose POC Whole Bld Glucose 145 H Calcium Total Bilirubin AST ALT Alkaline Phosphatase Troponin I High Sens Total Protein Albumin Globulin Albumin/Globulin Ratio Lipase Urine Color YELLOW Urine Clarity CLEAR Urine pH 6.5 Ur Specific Wing 1.010 Urine Protein NEGATIVE Urine Glucose (UA) NEGATIVE Urine Ketones NEGATIVE Urine Occult Blood NEGATIVE Urine Nitrite NEGATIVE Urine Bilirubin NEGATIVE Urine Urobilinogen 0.2 (NORMAL) Ur Leukocyte Esterase NEGATIVE Ur Microscopic Review NOT INDICATED Urine Culture Comments NOT INDICATED Procedures - IVC sono (time) 0310 Bedside IVC sono: IVC measures (cm) (0.89), Dehydration (est 2 liter deficit) PD Medical Decision Making - ED course Complexity details: reviewed results, re-evaluated patient, considered differential, d/w patient Reviewed Lab Results: We reviewed a complete blood count showing a white blood cell count of 12.2 mildly elevated hemoglobin hematocrit and platelets were normal. Chemistry showed normal electrolytes. Glucose is elevated at 232 normal liver function and high-sensitivity troponin of less than 2.3. Urinalysis shows clear yellow urine with specific gravity of 1.010 and is negative otherwise. ED course: 23-year-old Charlene Cline returns to the emergency department again today with rapid heart rate and palpitations with chest pain. She has normal sinus rhythm here in the emergency department on arrival and states that she took some metoprolol prior to coming to the emergency department and feels improved. On examination I found her to be dehydrated on the liter on the order of 2 L and her blood sugars over 246. I felt she likely had dehydration related to her diabetes and this may be the reason she is periodically getting tachycardic. Today we are replacing fluids with saline.And checking the patient's hemoglobin A1c. The A1c will not be resulted until 11am. The patient has improvement with fluid administration and her glucose went down to 140 range. Departure - Departure Disposition: 01 Home, Self Care Clinical Impression: Dehydration Diabetes type 2, uncontrolled Qualifiers: Glycemic state: with hyperglycemia Qualified Code(s): E11.65 - Type 2 diabetes mellitus with hyperglycemia Condition: Stable Instructions: ED Hyperglycemia Diabetic, ED Dehydration Follow-Up: Damon Garcia MD [Provider Admit Priv/Credential] - Comments: Charlene, today it looks like the rapid heart rate you are experiencing is related to your diabetes being out of control and the development of dehydration. Your hemoglobin A1c is still pending today. Follow-up with your primary care doctor for further work on your diabetes as indicated. Follow-up with the kiln cleaner as planned Forms: PCP List Discharge Date/Time: 06/30/23 06:18
[2023-06-30] MEDS: SODIUM CHLORIDE 0.9% 1,000 ML IV STA (03:22)
[2023-06-30 03:44] LABS: BASOPHILS % (AUTO) 0.3 %; EOSINOPHILS # (AUTO) 0.1 10^3/uL (0.0-0.7); EOSINOPHILS % (AUTO) 1.1 %; HCT - HEMATOCRIT 42.7 % (37.0-47.0); HGB - HEMOGLOBIN 15.1 g/dL (12.0-16.0); LYMPHOCYTES # (AUTO) 2.4 10^3/uL (1.5-3.5); LYMPHOCYTES % (AUTO) 19.3 %; MEAN CORPUSCULAR HEMOGLOBIN 32.8 pg (27.0-31.0); MEAN CORPUSCULAR HGB CONC 35.4 g/dL (32.0-36.0); MEAN CORPUSCULAR VOLUME 92.8 fL (81.0-99.0); MONOCYTES # (AUTO) 0.7 10^3/uL (0.0-1.0); MONOCYTES % (AUTO) 5.7 %; NEUTROPHILS % (AUTO) 73.4 %; PLT - PLATELET COUNT 351 10^3/uL (130-450); RED CELL DISTRIBUTION WIDTH 11.6 % (12.0-15.0); WHITE BLOOD COUNT 12.2 x10^3/uL (4.8-10.8)
[2023-06-30 04:01] LABS: ALBUMIN 4.7 g/dL (3.2-5.5); ALBUMIN/GLOBULIN RATIO 1.7 (1.0-2.2); BILIRUBIN,TOTAL 0.3 mg/dL (0.2-1.0); CREATININE 0.5 mg/dL (0.6-1.3); TOTAL PROTEIN 7.5 g/dL (6.4-8.9)
[2023-06-30 04:46] LABS: BILIRUBIN,URINE NEGATIVE (NEGATIVE); GLUCOSE, URINE (UA) NEGATIVE (NEGATIVE); KETONES,URINE (UA) NEGATIVE (NEGATIVE); LEUKOCYTE ESTERASE, URINE NEGATIVE (NEGATIVE); NITRITE,URINE NEGATIVE (NEGATIVE); OCCULT BLOOD,URINE NEGATIVE (NEGATIVE); PH,URINE 6.5 PH (5.0-7.5); PROTEIN,URINE NEGATIVE (NEGATIVE); UROBILINOGEN,URINE 0.2 (NORMAL) E.U./dL (NORMAL)
[2023-06-30 04:48] LABS: CLARITY,URINE CLEAR (CLEAR)
[2023-06-30 06:21] VITALS: BP 128/71
[2023-06-30 11:11] LABS: ESTIMATED AVERAGE GLUCOSE 134 mg/dL (70-100); HEMOGLOBIN A1c% 6.3 % (4.27-6.07)
== END 2023-06-30 06:18 | disposition home or self-care (01) ==
LOC: EDUNIT# → ED 02:00
DX: E11.65 Type 2 diabetes mellitus with hyperglycemia (principal); Z79.4 Long term (current) use of insulin; E86.0 Dehydration
CPT/HCPCS: 36415; 80053; 81001; 81003; 83036; 83690; 84484; 85025; 87086; 93005; 96360; 99284

== ENCOUNTER 2023-07-18 20:15 | Outpatient (CLI) | payer MEDICARE, BC | END 2023-07-18 23:59 | disposition critical access hospital (66) | LOC: EMS 20:15 | DX: R42 Dizziness and giddiness (principal); R63.0 Anorexia; R53.83 Other fatigue | CPT/HCPCS: A0425; A0429 ==

== ENCOUNTER 2023-07-18 20:35 | Emergency (ER) | payer MEDICARE, BC ==
[2023-07-18 20:49] VITALS: O2SAT 100
[2023-07-18 21:09] LABS: BASOPHILS % (AUTO) 0.3 %; EOSINOPHILS # (AUTO) 0.1 10^3/uL (0.0-0.7); HCT - HEMATOCRIT 42.5 % (37.0-47.0); LYMPHOCYTES # (AUTO) 3.8 10^3/uL (1.5-3.5); LYMPHOCYTES % (AUTO) 32.3 %; MEAN CORPUSCULAR HEMOGLOBIN 32.7 pg (27.0-31.0); MEAN CORPUSCULAR HGB CONC 35.3 g/dL (32.0-36.0); MEAN CORPUSCULAR VOLUME 92.6 fL (81.0-99.0); MONOCYTES % (AUTO) 8.4 %; NEUTROPHILS # (AUTO) 6.9 10^3/uL (1.5-6.6); NEUTROPHILS % (AUTO) 57.7 %; PLT - PLATELET COUNT 347 10^3/uL (130-450); RED BLOOD COUNT 4.59 10^6/uL (4.20-5.40); RED CELL DISTRIBUTION WIDTH 11.3 % (12.0-15.0); WHITE BLOOD COUNT 11.9 x10^3/uL (4.8-10.8)
[2023-07-18 21:25] LABS: ALBUMIN 4.8 g/dL (3.2-5.5); ALBUMIN/GLOBULIN RATIO 1.8 (1.0-2.2); BILIRUBIN,TOTAL 0.4 mg/dL (0.2-1.0); CALCIUM 9.9 mg/dL (8.5-10.3); CREATININE 0.7 mg/dL (0.6-1.3); POTASSIUM 3.6 mmol/L (3.5-4.5); TOTAL PROTEIN 7.4 g/dL (6.4-8.9)
[2023-07-18 21:31] LABS: HCG,QUALITATIVE BLOOD NEGATIVE
--- NOTE | 2023-07-18 21:32 | ED Physician Documentation ---
History of Present Illness - Stated complaint Stated Complaint: DIZZY/WEAKNESS - Chief complaint Chief Complaint: General - History obtained from History obtained from: Patient - Additonal information Additional information: BIBA. Patient c/o 2 weeks of fatigue, dizziness/lightheadedness, decreased appetite. She experiences the dizziness/lightheadedness when she stands up from sitting or lying down, but not while at rest (while sitting/lying down) nor if she has been ambulating/standing; it only occurs when she first stands up, but persists long enough to feel as though she might pass out. She says when this happens, she has to hold on to something to keep from falling due to dizziness/lightheadedness and generalized weakness. She denies chest pain but has been having episodic rapid palpitations (although these do not seem to necessarily correlate with her other symptoms). She recently finished wearing a holter monitor but does not know results; she has initial appointment with cardiology to discuss results next month. Patient was T+R from this ED 07/04/23 for similar symptoms and had unremarkable w/u including CBC, ER abdominal panel, TSH, free T4, CXR. FSBS for EMS en route was 156. Patient was T+R from this ED three times from 06/02/23 to the 07/04/23 visit; I was the ED MD on duty 06/02/23 when she presented for rapid palpitations. Testing unremarkable that visit including EKG, CTA chest; it was noted on that visit, however, that she was having ST as high as 160s on compliance monitor even when at rest and asleep (tachycardia did not appear to correlate with visible/reported anxiety on said visit). Review of Systems Cardiac: reports: Palpitations. denies: Chest pain / pressure Respiratory: reports: Reviewed and negative GI: reports: Reviewed and negative Neurologic: reports: Generalized weakness (episodic). denies: Focal weakness, Numbness, Syncope, Headache PD PAST MEDICAL HISTORY - Past Medical History Past Medical History: Yes Cardiovascular: None Respiratory: None Neuro: None Endocrine/Autoimmune: HyPOthyroidism, Type 2 diabetes, Other GI: None DRUG COUNSELOR: None : None HEENT: None Psych: Depression, Anxiety, ADD/ADHD Musculoskeletal: None Derm: None - Past Surgical History Past Surgical History: Yes HEENT: Tonsil/Adenoidectomy - Present Medications Home Medications: Ambulatory Orders Medication Instructions Recorded Confirmed Sertraline HCl [Zoloft] 100 mg PO DAILY 12/13/13 06/04/21 Ascorbate Calcium/Bioflavonoid 1 tab PO DAILY 08/16/14 06/04/21 [Hanny-C 500 mg Tablet] Guanfacine HCl [Intuniv] 0.5 - 1 mg PO BID 06/04/21 06/04/21 Methylphenidate [Ritalin] 54 mg PO DAILY 06/04/21 06/04/21 Primal Force 2 tab PO DAILY 06/04/21 metFORMIN [Glucophage] 500 mg PO BIDWM 06/04/21 06/04/21 Metoprolol Tartrate [Lopressor] 25 mg PO BID PRN #20 tablet 06/02/23 - Allergies Allergies/Adverse Reactions: Allergies Allergy/AdvReac Type Severity Reaction Status Date / Time aspirin AdvReac Dizziness Verified 07/18/23 20:38 - Social History Does the pt smoke?: No Smoking Status: Never smoker Does the pt drink ETOH?: No Does the pt have substance abuse?: No - Immunizations Immunizations are current?: Yes - POLST Patient has POLST: No PD ED PE NORMAL - Vitals Vital signs reviewed: Yes - General General: Alert and oriented X 3, No acute distress, Well developed/nourished - HEENT HEENT: Moist mucous membranes - Neck Neck: Supple, no meningeal sign - Cardiac Cardiac: RRR, No murmur, No gallop, No rub - Respiratory Respiratory: No respiratory distress, Clear bilaterally - Abdomen Abdomen: Soft, Non tender - Neuro Neuro: Alert and oriented X 3 Results - Vitals Vitals: Oxygen O2 Source Room air - Labs Labs: Laboratory Tests 07/18/23 07/18/23 07/18/23 21:04 21:04 21:04 WBC 11.9 H RBC 4.59 Hgb 15.0 Hct 42.5 MCV 92.6 MCH 32.7 H MCHC 35.3 RDW 11.3 L Plt Count 347 MPV 10.0 Neut # (Auto) 6.9 H Lymph # (Auto) 3.8 H [place]ike # (Auto) 1.0 Eos # (Auto) 0.1 Baso # (Auto) 0.0 Absolute Nucleated RBC 0.00 Nucleated RBC % 0.0 Sodium 138 Potassium 3.6 Chloride 105 Carbon Dioxide 26 Anion Gap 7.0 BUN 7 Creatinine 0.7 Estimated GFR (MDRD) 105 Glucose 104 Calcium 9.9 Total Bilirubin 0.4 AST 24 ALT 72 H Alkaline Phosphatase 74 Total Protein 7.4 Albumin 4.8 Globulin 2.6 Albumin/Globulin Ratio 1.8 Lipase 17 Serum HCG, Qual NEGATIVE PD Medical Decision Making - ED course Complexity details: reviewed old records, reviewed results, re-evaluated patient, considered differential, d/w patient ED course: RRR on cardiac auscultation, normal rate. She is in NAD during ED stay. Normal CBC (WBC 11.9), normal ER abdominal panel except ALT flagged as high (72), negative serum HCG. No significant changes in pulse/BP on orthostatic VS. Given several recent ED work-ups for these symptoms without concerning/diagnostic results, no further testing beyond the blood tests as noted above are performed kris. She has completed Holter monitoring recently, waiting to meet with cardiology to discuss results. Results of kris's blood tests d/w patient, return precautions reviewed. Departure - Departure Disposition: Home, Self Care Clinical Impression: Dizziness Condition: Good Instructions: ED Dizziness UKO Comments: There were no concerning or diagnostic findings on tonight's tests. Your vital signs including her pulse, blood pressure, and oxygen level, were all within normal limits (your blood pressure was very slightly above the normal range, but not nearly high enough to cause any symptoms). Thus, the cause of your symptoms is not apparent at this time. It sounds like you are testing for the symptoms is ongoing with your upcoming appointment with a leader assembler to review the results of the Holter monitor. Follow-up as scheduled. Forms: PCP List Discharge Date/Time: 07/18/23 22:45
[2023-07-18 22:48] VITALS: BP 134/82
== END 2023-07-18 22:45 | disposition home or self-care (01) ==
LOC: EDUNIT# → ED 20:35
DX: R42 Dizziness and giddiness (principal); E11.9 Type 2 diabetes mellitus without complications; E03.9 Hypothyroidism, unspecified; Z79.899 Other long term (current) drug therapy; Z79.84 Long term (current) use of oral hypoglycemic drugs
CPT/HCPCS: 36415; 80053; 83690; 84703; 85025; 99283

== ENCOUNTER 2023-08-05 13:36 | Outpatient (CLI) | payer MEDICARE, BC | END 2023-08-05 13:37 | disposition home or self-care (01) | LOC: DI 13:36 | PROVIDERS: ATTEND Physician Assistant Medical | DX: R07.9 Chest pain, unspecified (principal) | CPT/HCPCS: 93306 ==

== ENCOUNTER 2023-12-02 15:03 | Outpatient (CLI) | payer MEDICARE, BC ==
--- NOTE | 2023-12-02 15:35 | Sleep Patient Instructions ---
Sleep Center Visit Summary - Patient Visit Information Reason for Visit: Initial consult for evaluation of sleep disordered breathing and other sleep issues. - Patient Instructions Instructions Attached: Sleep Study, Sleep Study Home Monitor Additional Instructions: You will be completing a sleep study, either an in-lab polysomnography (PSG) or home sleep study (HST). You will follow-up in the sleep care office after the sleep study is completed to hear the results and talk about therapy, if needed. You will be called by our office staff to schedule this appointment, but you may contact us with any questions. - Clinic Information Contact: [facility] [address] [place] [id number] [email or web address] T: [phone]
--- NOTE | 2023-12-02 15:40 | SLEEP CARE CONSULTATION ---
Information from patient questionnaire entered by Aditya Hinojosa. I have reviewed and concur with the information entered by Aditya Hinojosa. This document represents the service I personally performed and the decisions made by me, Keeley Lovelace ARNP. History of Present Illness Service Date and Time: 12/02/2023 1503 Reason for Visit: New patient Chief Complaint: reports: Unrefreshed sleep, Excessive daytime sleepiness, Fatigue Date of Onset: 6 MONTHS Usual bedtime: 11PM Time it takes to fall asleep: I DONT KNOW; goes to sleep easily Snores at night: Yes Observed to quit breathing while asleep: No Sleeps alone due to snoring: No Number of times waking at night: 2-3 Reasons for waking at night: reports: Pain, Bathroom, Other (UNKNOWN ). denies: Choking, Snoring, Gasping for air Toss, Turn, or Twitch while sleeping: Yes Recalls having dreams: No Usually gets out of bed at: 9AM-12PM Feels refreshed in the morning: No Morning headache: No Sleepy or fatigued during the day: Yes (no unintentional naps) Ever fallen asleep while driving: No (she does not drive) Takes day naps: No Dreams during day naps: No Prior sleep studies: No Additional HPI information: I had the pleasure of seeing ROCKY QUINTERO today regarding the possibility of her having a sleep disorder. Her current complaints are excessive daytime sleepiness, fatigue and unrefreshed sleep. She says that in May she woke up with an episode of sinus tachycardia. She is here for evaluation of her sleep. She says she knows that she snores when she is on her back and not when on her sides. She sleeps alone, so no one has been able to see if she has pauses in breathing. She sleeps on average 8-10 hours nightly and does not feel rested. She says she will go to sleep quickly and sleeps through the night with occasional wake ups. She denies drowsy driving. 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 Patient is Single and lives in [place]. Have you smoked in the past 12 months: No (vapes flavored "air") Cigarettes per day (20/pack): 20 Years of smokin Quit date: 2019 Smoking Pack Years: 2.0 Alcohol use: Yes Alcohol amount and frequency: 1 50% DRINK 1-2 X WEEK Caffeine use: Yes Caffeine amount and frequency: 1 8OZ CUP DAILY Family History Family history of sleep disordered breathing: Yes Family Hx Sleep Apnea: Father: Snoring, Grandparent: Snoring Allergies and Home Medications Known drug allergies: No (as listed) Drug allergies reviewed: Yes Home medication list reviewed: Yes Allergy and home medication list: Allergies aspirin Adverse Reaction (Verified 11/30/23 09:17) Dizziness Home Medications Medication Instructions Recorded Confirmed Last Taken Type metFORMIN [Glucophage] 500 mg PO BIDWM 06/04/21 12/02/23 Unknown History Metoprolol Tartrate [Lopressor] 25 mg PO BID PRN #20 tablet 06/02/23 12/02/23 Unknown Rx Lisinopril [Zestril] See Rx Instructions .ROUTE .COMPLEX 12/02/23 12/02/23 Unknown History PARoxetine HCL [Paroxetine Cr] See Rx Instructions .ROUTE .COMPLEX 12/02/23 12/02/23 Unknown History Review of Systems Cardiovascular: reports: high blood pressure, palpitations, chest pain Gastrointestinal: denies: heartburn Neurological: reports: headaches. denies: head trauma Psychiatric: reports: Attention Deficit Hyperactivity, anxiety, depression, claustrophobia Ear/Nose/Throat: reports: tonsillectomy, wisdom teeth removed (just bottom wisdom teeth). denies: injury to nose Endocrine: reports: sluggishness Musculoskeletal: reports: joint pain, muscle pain or cramping Immunologic: reports: sneezing Physical Exam Vital signs obtained and entered by: ADITYA Najera MA Blood Pressure: 128/82 (LEFT ) Cuff size: wrist Heart Rate: 88 O2 Saturation: 99 Height: 5 ft 2.5 in Weight: 228 lb Body Mass Index: 41.0 BMI Classification: Morbidly Obese Neck circumference: 19 Mouth and throat: narrow oropharynx Soft palate: long Hard palate: Torus palatinus Uvula: normal Uvula visualization: 25% Mallampati Class III Tongue: enlarged in size with teeth valentine on lateral edges Tonsils: absent bilaterally Neck: normal w/o lymphadenopathy or thyromegaly Heart: regular rate and rhythm Lungs: clear bilaterally Impression and Plan 1. Suspected Obstructive Sleep Apnea-Hypopnea Syndrome, as suggested by a history of loud and irregular snoring, unrefreshed sleep, and excessive daytime sleepiness. Narrow oropharynx and obesity are common predisposing factors for obstructive sleep apnea-hypopnea syndrome. I recommend proceeding to polysomnography to confirm the diagnosis and to assess severity. If the patient has significant sleep disordered breathing, a manual CPAP titration study will also be performed to find the optimal treatment pressure. I informed the patient of what the sleep studies involve and after some discussion, obtained agreement to proceed. The pathophysiology of obstructive sleep apnea-hypopnea syndrome was discussed with the patient and health risks of cardiovascular and cerebrovascular disease if not treated. Risks of drowsy driving discussed in detail and patient advised to avoid long distance driving and to pack puller at the first sign of drowsiness. Patient agreed to plan. * Schedule polysomnography +- manual CPAP titration study and return in 1-2 weeks after the study to discuss result and initiate therapy. * Avoid long distance driving or driving when feeling sleepy. * Avoid alcohol, sedative and muscle relaxant around bedtime. * Attempt to lose weight. * Review instructions provided by trained office staff on how to prepare for the sleep study. * Return for follow-up after sleep study completed. Counseling Topics: Weight loss health impact Plan: PSG/HST Visit Type: In Office Time Spent with Patient (minutes): 30 Provider Statement: I spent 100% of the Face to Face Visit with the patient with greater than 50% spent counseling the patient and coordination of care.
[2023-12-02 15:49] VITALS: BP 128/82; O2SAT 99
== END 2023-12-02 15:04 | disposition home or self-care (01) ==
LOC: SC 15:03
PROVIDERS: ATTEND Nurse Practitioner Family
DX: G47.10 Hypersomnia, unspecified (principal); R53.83 Other fatigue; R06.83 Snoring; G47.8 Other sleep disorders; E11.9 Type 2 diabetes mellitus without complications; I10 Essential (primary) hypertension; E66.01 Morbid (severe) obesity due to excess calories; Z68.41 Body mass index [BMI] 40.0-44.9, adult; F17.290 Nicotine dependence, other tobacco product, uncomplicated; Z79.84 Long term (current) use of oral hypoglycemic drugs
CPT/HCPCS: 99203; G0463; 99212

== ENCOUNTER 2023-12-08 13:28 | Outpatient (CLI) | payer BC, MEDICARE ==
[2023-12-08 18:22] LABS: BASOPHILS % (AUTO) 0.5 %; EOSINOPHILS # (AUTO) 0.2 10^3/uL (0.0-0.7); EOSINOPHILS % (AUTO) 1.8 %; HCT - HEMATOCRIT 46.1 % (37.0-47.0); HGB - HEMOGLOBIN 15.4 g/dL (12.0-16.0); LYMPHOCYTES # (AUTO) 2.8 10^3/uL (1.5-3.5); LYMPHOCYTES % (AUTO) 32.4 %; MEAN CORPUSCULAR HGB CONC 33.4 g/dL (32.0-36.0); MEAN CORPUSCULAR VOLUME 95.8 fL (81.0-99.0); MEAN PLATELET VOLUME 10.4 fL (7.9-10.8); MONOCYTES # (AUTO) 0.5 10^3/uL (0.0-1.0); NEUTROPHILS # (AUTO) 5.2 10^3/uL (1.5-6.6); NEUTROPHILS % (AUTO) 59.1 %; PLT - PLATELET COUNT 360 10^3/uL (130-450); RED BLOOD COUNT 4.81 10^6/uL (4.20-5.40); RED CELL DISTRIBUTION WIDTH 11.7 % (12.0-15.0); WHITE BLOOD COUNT 8.7 x10^3/uL (4.8-10.8)
[2023-12-08 18:36] LABS: ALBUMIN 4.6 g/dL (3.2-5.5); ALBUMIN/GLOBULIN RATIO 1.5 (1.0-2.2); BILIRUBIN,TOTAL 0.5 mg/dL (0.2-1.0); CALCIUM 9.6 mg/dL (8.5-10.3); CREATININE 0.7 mg/dL (0.6-1.3); POTASSIUM 4.3 mmol/L (3.5-4.5); TOTAL PROTEIN 7.6 g/dL (6.4-8.9)
[2023-12-08 18:51] LABS: THYROID STIMULATING HORMONE 1.43 uIU/mL (0.34-5.60)
[2023-12-08 21:39] LABS: ESTIMATED AVERAGE GLUCOSE 120 mg/dL (70-100); HEMOGLOBIN A1c% 5.8 % (4.27-6.07)
== END 2023-12-08 13:29 | disposition home or self-care (01) ==
LOC: LAB.N 13:28
PROVIDERS: ATTEND Physician Assistant Medical
DX: Z00.00 Encounter for general adult medical examination without abnormal findings (principal); E03.9 Hypothyroidism, unspecified; E11.9 Type 2 diabetes mellitus without complications
CPT/HCPCS: 36415; 80053; 83036; 84443; 85025

== ENCOUNTER 2023-12-29 14:31 | Outpatient (CLI) | payer MEDICARE, BC ==
--- NOTE | 2023-12-29 14:58 | Sleep Patient Instructions ---
Sleep Center Visit Summary - Patient Visit Information Reason for Visit: Sleep study follow-up - Patient Instructions Instructions Attached: Snoring Tips Prevent Additional Instructions: Your sleep study today was negative for significant sleep disordered breathing. You were found to have episodes of snoring. There are different ways to control snoring including weight loss, oral devices made by a dentist or surgical options through ENT specialist. You should not use oral devices that do not fit properly because they can affect your bite. You should also check insurance coverage of oral devices for snoring because they may not be cover well. You may obtain a referral to an ENT specialist through your primary provider. Follow-up as needed. - Clinic Information Contact: [facility] [address] [place] [address] [email or web address] T: [phone]
--- NOTE | 2023-12-29 14:59 | SLEEP CARE CONSULTATION ---
Information from patient questionnaire entered by Judith Hinojosa. I have reviewed and concur with the information entered by Judith Hinojosa. This document represents the service I personally performed and the decisions made by , Keeley Lovelace ARNP. History of Present Illness Service Date and Time: 12/29/2023 143 Initial Summers Sleepiness Scale score: 13 Current Summers Sleepiness Scale score: 9 (12/29/23) Additional HPI information: ROCKY QUINTERO returns for follow up and results of the recently performed polysomnography. The patient was informed of the following findings: No significant sleep disordered breathing with an average AHI of 1.1 and lyubov oxygen saturation of 90%. I explained the pathophysiology behind obstructive sleep apnea. Patient does not have sleep apnea and was advised how weight gain could increase the risk of developing sleep apnea in the future. I strongly encouraged the patient to lose weight. Patient has light to moderate snoring. Snoring can be reduced by weight loss. Weight loss is best achieved with diet consult. Patient instructed to contact PCP for referral. Snoring can also be treated with an oral appliance from a dentist. Advised to check insurance coverage. In addition, an ENT evaluation can be do to see if other treatment is indicated. Patient counseled not drink alcohol less than 4 hours before bedtime as it can increase snoring and apnea. Patient was cautioned about risks of drowsy driving until sleepiness symptoms resolve. Patient denies drowsy driving and she does not drive. Sleep Study - Results Type of Sleep Study: Polysomnography (COMPLETED 12/12/23) Prior sleep studies: No Polysomnography/Home Sleep Study results: IMPRESSION: The quality of the study is good. The patient had normal sleep efficiency. The sleep architecture was abnormal for mild sleep fragmentation and reduced amount of time spent in slow wave sleep (N3). Respiratory monitoring showed no significant sleep disordered breathing (AHI = 1.1) or hypoxia (lyubov oxygen saturation of 90%). The patient did not sleep supine during this study. Snore was light to moderate in intensity. There was no significant periodic leg movement of sleep. Cardiac rhythm was normal sinus rhythm without significant arrhythmia. No abnormal behavior (parasomnia) observed during the night. Allergies and Home Medications Known drug allergies: Yes (as listed) Drug allergies reviewed: Yes Home medication list reviewed: Yes (no changes) Allergy and home medication list: Allergies aspirin Adverse Reaction (Verified 12/02/23 15:04) Dizziness Review of Systems Review of systems same as previous: Yes (NO CHANGE) Physical Exam Vital signs obtained and entered by: JUDITH Najera MA Blood Pressure: 161/84 (RIGHT ARM) Cuff size: regular Heart Rate: 88 O2 Saturation: 99 Height: 5 ft 2.5 in Weight: 228 lb 3.2 oz Body Mass Index: 41.1 BMI Classification: Morbidly Obese Impression and Plan 1. Snoring but no significant sleep disordered breathing. However, patient did not sleep supine so we cannot sleep disordered breathing when sleeping supine. Patient advised that often weight loss will reduce snoring as well as apnea risk. An oral appliance can also be used for snoring. This would require a dental consultation. Patient cautioned not to use other online appliances as can cause bite issues. Patient is advised to check if insurance will cover. An ENT consult can also be helpful to determine if any other treatment is an option. 2. Obesity, unspecified. Currently patients BMI is 41.1. Obesity increases the risk of apnea, CPAP pressure requirements and overall health risks especially cardiovascular and diabetes. Thus patient is advised to lose weight. * Attempt to lose weight * Avoid alcohol consumption near bedtime * The patient is cautioned about driving until sleepiness is completely resolved. * Return as needed for follow up. Counseling Topics: Weight loss health impact Follow up with Sleep Care in: as needed Visit Type: In Office Time Spent with Patient (minutes): 12 Provider Statement: I spent 100% of the Face to Face Visit with the patient with greater than 50% spent counseling the patient and coordination of care.
[2023-12-29 15:06] VITALS: BP 161/84; O2SAT 99
== END 2023-12-29 14:32 | disposition home or self-care (01) ==
LOC: SC 14:31
PROVIDERS: ATTEND Nurse Practitioner Family
DX: R06.83 Snoring (principal); E66.01 Morbid (severe) obesity due to excess calories; Z68.41 Body mass index [BMI] 40.0-44.9, adult
CPT/HCPCS: 99212; G0463

== ENCOUNTER 2024-06-01 15:33 | Outpatient (CLI) | payer MEDICARE, BC ==
[2024-06-01 16:14] LABS: ALBUMIN 4.6 g/dL (3.2-5.5); ALBUMIN/GLOBULIN RATIO 1.5 (1.0-2.2); ALKALINE PHOSPHATASE 77 IU/L (42-121); ALT ALANINE AMINOTRANSFERASE 19 IU/L (10-60); AST ASPARTATE AMINOTRANSFERASE 11 IU/L (10-42); BILIRUBIN,TOTAL 0.6 mg/dL (0.2-1.0); BUN - BLOOD UREA NITROGEN 6 mg/dL (6-20); CALCIUM 9.6 mg/dL (8.5-10.3); CARBON DIOXIDE - CO2 26 mmol/L (21-32); CHLORIDE 105 mmol/L (101-111); CHOL/HDL RATIO 4.3 (<4.4); CHOLESTEROL 155 mg/dL; CREATININE 0.7 mg/dL (0.6-1.3); GFR - MDRD 104 (>89); GLUCOSE 122 mg/dL (74-104); HDL CHOLESTEROL 36 mg/dL; LDL CHOLESTEROL,CALCULATED 90 mg/dL; LDL/HDL RATIO 2.5 (<4.4); POTASSIUM 4.2 mmol/L (3.5-4.5); SODIUM 137 mmol/L (135-145); TOTAL PROTEIN 7.6 g/dL (6.4-8.9); TRIGLYCERIDES 147 mg/dL; VLDL CHOLESTEROL 29 mg/dL
[2024-06-01 16:24] LABS: THYROID STIMULATING HORMONE 0.98 uIU/mL (0.34-5.60)
[2024-06-01 21:19] LABS: ESTIMATED AVERAGE GLUCOSE 151 mg/dL (70-100); HEMOGLOBIN A1c% 6.9 % (4.27-6.07)
== END 2024-06-01 15:34 | disposition home or self-care (01) ==
LOC: LAB 15:33
PROVIDERS: ATTEND Physician Assistant Medical
DX: E03.9 Hypothyroidism, unspecified (principal); E11.9 Type 2 diabetes mellitus without complications
CPT/HCPCS: 36415; 80053; 80061; 83036; 83721; 84443